=== PATIENT | female | born 1965 | race American Indian/Alaskan Native ===

== ENCOUNTER 2017-12-29 05:01 | Observation (INO) | payer MEDICARE ==
--- NOTE | 2017-12-29 05:26 | ED PDOC ---
Arrival/HPI - General Chief Complaint: Headache Time Seen by Provider: 12/29/17 05:07 - History of Present Illness Narrative History of Present Illness (Text): 12/29/17 05:26 52 year old female, whose past medical history includes TIA (left-sided numbness 10/2017 lasted about 5 days and now fully resolved), spinal surgery, and hyperlipidemia, presents to the emergency department complaining of a right- sided frontal headache associated with blurry vision to the right eye that began 4 hours ago at midnight. Patient states she was asleep when the headache woke her up. She went to bed 2 hours prior to that. Patient denies any trauma, fever, chills, photophobia, chest pain, palpitations, shortness of breath, nausea, vomiting, facial droop, neurological symptoms, or any other complaints. Past Medical History - Provider Review Nursing Documentation Reviewed: Yes - Cardiac Hx Cardiac Disorders: No - Neurological Hx Neurological Disorder: Yes Hx Seizures: Yes Hx Transient Ischemic Attacks (TIA): Yes (10/2017) - Musculoskeletal/Rheumatological Hx Musculoskeletal Disorders: Yes - Psychiatric Hx Substance Use: No Family/Social History - Physician Review Nursing Documentation Reviewed: Yes Family/Social History: No Known Family HX Smoking Status: Never Smoked Hx Alcohol Use: No Hx Substance Use: No Allergies/Home Meds Allergies/Adverse Reactions: Allergies banana Adverse Reaction (Verified 12/29/17 05:06) ANAPHYLAXIS Home Medications: Home Meds Medication Instructions Recorded Confirmed Baclofen [Lioresal] 1 tab PO TID 12/29/17 12/29/17 Citalopram Hydrobromide 1 tab PO DAILY 12/29/17 12/29/17 [Citalopram HBr] Etodolac [Lodine] 1 tab PO TID 12/29/17 12/29/17 Gabapentin [Neurontin] 1 tab PO TID 12/29/17 12/29/17 Loratadine [Claritin] 1 tab PO DAILY 12/29/17 12/29/17 Simvastatin [Zocor] 1 tab PO DAILY 12/29/17 12/29/17 Review of Systems - Physician Review All systems were reviewed & negative as marked: Yes - Review of Systems Constitutional: absent: Fevers Cardiovascular: absent: Chest Pain Physical Exam - Physical Exam Narrative Physical Exam (Text): Constitutional: Appears uncomfortable Head: Normocephalic. Atraumatic. No tender or enlarged temporal artery. Eyes: PERRL. EOMI. No mid-dilated pupil ENT: Moist mucous membranes. Neck: Supple. Cardiovascular: Regular rate. Chest: No tenderness. Respiratory: Clear to auscultation bilaterally. GI: Soft. Nontender. Nondistended. Back: No CVA tenderness. Musculoskeletal: No tenderness or swelling of extremities. Skin: No rash. Neurologic: Alert, no focal deficit. Oriented x 3. Follows commands. Motor 5/5 x 4. Sensation to light touch intact. No facial droop. Visual gimenez full. FTN normal. Normal speech. Vital Signs Reviewed: Yes Vital Signs Temp Pulse Resp BP Pulse Ox 12/29/17 05:51 67 14 125/88 98 12/29/17 05:08 98.2 F 79 24 138/103 H 98 Medical Decision Making ED Course and Treatment: Differential for headache and sudden unilateral painful vision change includes glaucoma (unlikely based on physical exam), giant cell arteritis (will send ESR/ CRP), migraine. This is unlikely CVA given NIHSS is 0 and regardless, patient is outside tPA window. Plan: -- CT Head w/o contrast -- Labs -- HCG, Qualitative urine -- Reassess and disposition Progress Notes: 12/29/17 06:04 FINDINGS: Brain: Unremarkable. No hemorrhage. No significant white matter disease. No edema. Ventricles: Unremarkable. No ventriculomegaly. Bones/joints: Unremarkable. No acute fracture. Soft tissues: Unremarkable. Sinuses: There is mild sinus disease. Mastoid air cells: Unremarkable as visualized. No mastoid effusion. IMPRESSION: No acute findings. 12/29/17 06:53 Signed out to ED day team. - Lab Interpretations Lab Results: 12/29/17 05:35 12/29/17 05:35 Lab Results 12/29/17 05:50: Urine HCG, Qual Negative 12/29/17 05:35: Sodium 145, Potassium 4.2, Chloride 107, Carbon Dioxide 27, Anion Gap 15, BUN 19, Creatinine 0.7, Est GFR ( Amer) > 60, Est GFR (Non- Af Amer) > 60, Random Glucose 123 H, Calcium 9.0, Total Bilirubin 0.9, AST 33, ALT 32, Alkaline Phosphatase 69, Total Protein 7.2, Albumin 4.2, Globulin 3.0, Albumin/Globulin Ratio 1.4 12/29/17 05:35: WBC 5.8, RBC 4.62, Hgb 12.7, Hct 38.7, MCV 83.8, MCH 27.5, MCHC 32.8, RDW 13.3, Plt Count 290, MPV 10.3, Gran % 47.4 L, Lymph % (Auto) 40.8 H, [place] % (Auto) 4.6, Eos % (Auto) 6.7 H, Baso % (Auto) 0.5, Gran # 2.75, Lymph # ( Auto) 2.4, [place] # (Auto) 0.3, Eos # (Auto) 0.4, Baso # (Auto) 0.03, ESR Pending I have reviewed the lab results: Yes - RAD Interpretation Radiology Orders: 12/29/17 05:27 HEAD W/O CONTRAST [CT] Stat - Medication Orders Current Medication Orders: Discontinued Medications Acetaminophen (Tylenol 325mg Tab) 975 mg PO STAT STA Stop: 12/29/17 06:19 Last Admin: 12/29/17 06:34 Dose: 975 mg Diphenhydramine HCl (Benadryl) 25 mg IVP STAT STA Stop: 12/29/17 06:19 Last Admin: 12/29/17 06:35 Dose: 25 mg IVP Administration Document 12/29/17 06:35 CNR (Rec: 12/29/17 06:35 CNR [id number]) Charges for Administration # of IVP Administrations 1 Ketorolac Tromethamine (Toradol) 30 mg IVP STAT STA Stop: 12/29/17 06:18 Last Admin: 12/29/17 06:35 Dose: 30 mg MAR Pain Assessment Document 12/29/17 06:35 CNR (Rec: 12/29/17 06:35 CNR [id number]) Pain Reassessment Is this a pain reassessment? No IVP Administration Document 12/29/17 06:35 CNR (Rec: 12/29/17 06:35 CNR [id number]) Charges for Administration # of IVP Administrations 1 - Scribe Statement The provider has reviewed the documentation as recorded by the Brayden Velasco Provider Scribe Attestation: All medical record entries made by the Carlitosibnikolai were at my direction and personally dictated by me. I have reviewed the chart and agree that the record accurately reflects my personal performance of the history, physical exam, medical decision making, and the department course for this patient. I have also personally directed, reviewed, and agree with the discharge instructions and disposition. Disposition/Present on Arrival - Present on Arrival Any Indicators Present on Arrival: No History of DVT/PE: No History of Uncontrolled Diabetes: No Urinary Catheter: No History of Decub. Ulcer: No History Surgical Site Infection Following: None - Disposition Have Diagnosis and Disposition been Completed?: No Diagnosis: Headache Disposition Time: 06:53 Condition: STABLE Forms: [employer] (Ethiopian)
--- NOTE | 2017-12-29 06:03 | CT ---
EXAM: CT Head Without Intravenous Contrast CLINICAL HISTORY: 52 years old, female; Pain; Headache; Additional info: Headache, r eye blurry vision TECHNIQUE: Axial computed tomography images of the head/brain without intravenous contrast. All CT scans at this facility use at least one of these dose optimization techniques: automated exposure control; mA and/or kV adjustment per patient size (includes targeted exams where dose is matched to clinical indication); or iterative reconstruction. Coronal and sagittal reformatted images were created and reviewed. COMPARISON: No relevant prior studies available. FINDINGS: Brain: Unremarkable. No hemorrhage. No significant white matter disease. No edema. Ventricles: Unremarkable. No ventriculomegaly. Bones/joints: Unremarkable. No acute fracture. Soft tissues: Unremarkable. Sinuses: There is mild sinus disease. Mastoid air cells: Unremarkable as visualized. No mastoid effusion. IMPRESSION: No acute findings.
[2017-12-29 06:04] LABS: ALB/GLOB RATIO 1.4 (1.1-1.8); ALBUMIN 4.2 g/dL (3.0-4.8); ALT/SGPT 32 U/L (7-56); AST/SGOT 33 U/L (14-36); BASO # 0.03 K/mm3 (0.0-2.0); BASO % 0.5 % (0.0-3.0); BLOOD UREA NITROGEN 19 mg/dL (7-21); EOS # 0.4 (0.0-0.7); EOS % 6.7 % (1.5-5.0); GFR AFRICAN-AMERICAN > 60; GFR NON-AFRICAN AMERICAN > 60; GRAN # 2.75 (1.4-6.5); GRAN % 47.4 % (50.0-68.0); HEMOGLOBIN 12.7 g/dL (12.0-16.0); LYMPH # 2.4 (1.2-3.4); LYMPH % 40.8 % (22.0-35.0); MEAN CELL VOLUME 83.8 fl (80.0-105.0); MEAN CORPUSCULAR HEMOGLOBIN 27.5 pg (25.0-35.0); MEAN CORPUSCULAR HGB CONC 32.8 g/dl (31.0-37.0); MEAN PLATELET VOLUME 10.3 fl (7.0-11.0); MONO # 0.3 (0.1-0.6); MONO % 4.6 % (1.0-6.0); RBC 4.62 10^6/uL (3.5-6.1); RED CELL DISTRIBUTION WIDTH 13.3 % (11.5-14.5); WHITE BLOOD COUNT 5.8 10^3/ul (4.5-11.0)
[2017-12-29] MEDS ORDERED: DiphenhydrAMINE 50 mg/ml Inj IVP STA (06:18)
[2017-12-29] MEDS ORDERED: Morphine 4 mg/ml ISec IVP STA (06:52)
--- NOTE | 2017-12-29 07:06 | ED PDOC ---
Physical Exam Vital Signs Reviewed: Yes Vital Signs Temp Pulse Resp BP Pulse Ox 12/29/17 07:36 69 16 120/82 96 12/29/17 05:51 67 14 125/88 98 12/29/17 05:08 98.2 F 79 24 138/103 H 98 Temperature: Afebrile Blood Pressure: Hypertensive Pulse: Regular Respiratory Rate: Normal Appearance: Positive for: Well-Appearing, Non-Toxic, Comfortable Pain Distress: None Mental Status: Positive for: Alert and Oriented X 3 - Systems Exam Head: Present: Atraumatic, Normocephalic Pupils: Present: PERRL Extroacular Muscles: Present: EOMI Conjunctiva: Present: Normal Mouth: Present: Moist Mucous Membranes Neck: Present: Normal Range of Motion Respiratory/Chest: Present: Clear to Auscultation, Good Air Exchange. No: Respiratory Distress, Accessory Muscle Use Cardiovascular: Present: Regular Rate and Rhythm, Normal S1, S2. No: Murmurs Abdomen: No: Tenderness, Distention, Peritoneal Signs Back: Present: Normal Inspection Upper Extremity: Present: Normal Inspection. No: Cyanosis, Edema Lower Extremity: Present: Normal Inspection. No: Edema Neurological: Present: GCS=15, CN II-XII Intact, Speech Normal, Motor Func Grossly Intact, Normal Sensory Function, Other (tenderness to right temporal area of head) Skin: Present: Warm, Dry, Normal Color. No: Rashes Psychiatric: Present: Alert, Oriented x 3, Normal Insight, Normal Concentration Medical Decision Making ED Course and Treatment: 12/29/17 07:03 Case signed out to me by Dr. Leyva, pending labs and reevaluation. 12/29/17 07:[address] Leong, Neurology, who agrees to place on observation for headache r/o giant cell arteritis. She will evaluate patient. Case discussed with Dr. Rizzo who will place the patient on observation for medicine. - Lab Interpretations Lab Results: 12/29/17 05:35 12/29/17 05:35 Lab Results 12/29/17 05:50: Urine HCG, Qual Negative 12/29/17 05:35: Sodium 145, Potassium 4.2, Chloride 107, Carbon Dioxide 27, Anion Gap 15, BUN 19, Creatinine 0.7, Est GFR ( Amer) > 60, Est GFR (Non- Af Amer) > 60, Random Glucose 123 H, Calcium 9.0, Total Bilirubin 0.9, AST 33, ALT 32, Alkaline Phosphatase 69, Total Protein 7.2, Albumin 4.2, Globulin 3.0, Albumin/Globulin Ratio 1.4 12/29/17 05:35: WBC 5.8, RBC 4.62, Hgb 12.7, Hct 38.7, MCV 83.8, MCH 27.5, MCHC 32.8, RDW 13.3, Plt Count 290, MPV 10.3, Gran % 47.4 L, Lymph % (Auto) 40.8 H, [place] % (Auto) 4.6, Eos % (Auto) 6.7 H, Baso % (Auto) 0.5, Gran # 2.75, Lymph # ( Auto) 2.4, [place] # (Auto) 0.3, Eos # (Auto) 0.4, Baso # (Auto) 0.03, ESR 5 - RAD Interpretation Radiology Orders: 12/29/17 05:27 HEAD W/O CONTRAST [CT] Stat - Medication Orders Current Medication Orders: Discontinued Medications Acetaminophen (Tylenol 325mg Tab) 975 mg PO STAT STA Stop: 12/29/17 06:19 Last Admin: 12/29/17 06:34 Dose: 975 mg Diphenhydramine HCl (Benadryl) 25 mg IVP STAT STA Stop: 12/29/17 06:19 Last Admin: 12/29/17 06:35 Dose: 25 mg IVP Administration Document 12/29/17 06:35 CNR (Rec: 12/29/17 06:35 CNR [id number]) Charges for Administration # of IVP Administrations 1 Ketorolac Tromethamine (Toradol) 30 mg IVP STAT STA Stop: 12/29/17 06:18 Last Admin: 12/29/17 06:35 Dose: 30 mg MAR Pain Assessment Document 12/29/17 06:35 CNR (Rec: 12/29/17 06:35 CNR [id number]) Pain Reassessment Is this a pain reassessment? No IVP Administration Document 12/29/17 06:35 CNR (Rec: 12/29/17 06:35 CNR [id number]) Charges for Administration # of IVP Administrations 1 Morphine Sulfate (Morphine) 4 mg IVP STAT STA Stop: 12/29/17 06:53 Last Admin: 12/29/17 07:01 Dose: 4 mg MAR Pain Assessment Document 12/29/17 07:01 CNR (Rec: 12/29/17 07:03 CNR [id number]) Pain Reassessment Is this a pain reassessment? No IVP Administration Document 12/29/17 07:01 CNR (Rec: 12/29/17 07:03 CNR [id number]) Charges for Administration # of IVP Administrations 1 - Scribe Statement The provider has reviewed the documentation as recorded by the Scribnikolai Garibay All medical record entries made by the Carlitosibnikolai were at my direction and personally dictated by me. I have reviewed the chart and agree that the record accurately reflects my personal performance of the history, physical exam, medical decision making, and the department course for this patient. I have also personally directed, reviewed, and agree with the discharge instructions and disposition. Disposition/Present on Arrival - Present on Arrival Any Indicators Present on Arrival: No History of DVT/PE: No History of Uncontrolled Diabetes: No Urinary Catheter: No History of Decub. Ulcer: No History Surgical Site Infection Following: None - Disposition Have Diagnosis and Disposition been Completed?: Yes Diagnosis: Headache Disposition: HOSPITALIZED Disposition Time: 09:05 Patient Plan: Observation Patient Problems: Current Active Problems Problem Status Onset Headache Acute Condition: STABLE
[2017-12-29] MEDS ORDERED: Morphine 2 mg/ml ISec IVP STA (09:30)
[2017-12-29] MEDS ORDERED: Morphine 2 mg/ml ISec IVP PRN ×2 (09:50→17:00)
[2017-12-29 10:00] LABS: HDL CHOLESTEROL 43 mg/dL (29-60)
[2017-12-29 10:10] LABS: LDL CHOLESTEROL 88 mg/dL (0-129)
[2017-12-29] MEDS ORDERED: methylPREDNISolone 1 GM in Sodium Chloride 0.9% 250 ML IV ONE (10:45)
[2017-12-29 10:49] VITALS: BMI 25.8
[2017-12-29] MEDS: ETODOLAC PO SCH ×3 (10:54→18:52)
--- NOTE | 2017-12-29 12:17 | CP.PCM.HP ---
<Yobani Kang - Last Filed: 12/29/17 12:37> History of Present Illness - History of Present Illness History of Present Illness: 52 y o female PMhx HLD, CVA in October 2017 with L sided numbness lasting about 5 days resolved, headaches, hx spinal surgery x 3 in 2014 for saddle anesthesia, seizures (last seizure in 2014 controlled on keppra), presents to the ED with R sided frontal headache with blurry vision and tearing of R eye that began at midnight today. Pt states that the headache has been continuous, unrelieving with medication, and woke her from sleep. Pt denies hx of this kind of headache happening before. Pt describes blurry vision on R side as feeling like a curtain is dropping down on her eye. Also c/o photophobia and phonophobia. C/o tenderness to palpation lateral to R eye and tenderness on her R forehead above R eye. Rated pain as greater than 10/10 on presentation to ED, pain is currently 8/10, controlled with current pain regimen. Admits to jaw pain but denies jaw claudication. No inciting events prior to incident. No recent hx of sick contacts. No hx of autoimmune disease or vasculitis. Denies any deficits to sensation or motion. Denies fever, chills, chest pain, neck stiffness, shortness of breath, n/v/d/c, abd pain, loss of bowel/bladder control, or other symptoms. PMhx: HLD, CVA in October 2017, saddle anesthesia, seizures, hay fever PSurgHx: C/s x1, myomectomy, spinal surgery x 3 to lower back for saddle anesthesia Allergies: NKDA Meds: Keppra bid, Statin, Citalopram, ASA 81 mg daily Social hx: denies smoking, alcohol or drug use PMD: Dr. Lamas Present on Admission - Present on Admission Any Indicators Present on Admission: No Review of Systems - Review of Systems All systems: reviewed and no additional remarkable complaints except - Constitutional Constitutional: As Per HPI, Headache - EENT Eyes: As Per HPI Ears: As Per HPI - Cardiovascular Cardiovascular: As Per HPI - Respiratory Respiratory: As Per HPI - Gastrointestinal Gastrointestinal: As Per HPI - Neurological Neurological: As Per HPI Past Patient History - Past Medical History & Family History Past Medical History?: Yes Pertinent Family History: Mom - hx HTN; Dad - hx stroke; both in their 80s - Past Social History Smoking Status: Never Smoked - CARDIAC Hx Cardiac Disorders: Yes Hx Hypercholesterolemia: Yes Other/Comment: HYPERLIPIDEMIA - PULMONARY Hx Respiratory Disorders: No - NEUROLOGICAL Hx Neurological Disorder: Yes HX Cerebrovascular Accident: Yes Hx Seizures: Yes Hx Transient Ischemic Attacks (TIA): No - HEENT Hx HEENT Problems: No - RENAL Hx Chronic Kidney Disease: No - ENDOCRINE/METABOLIC Hx Endocrine Disorders: No - HEMATOLOGICAL/ONCOLOGICAL Hx Blood Disorders: No - INTEGUMENTARY Hx Dermatological Problems: No - MUSCULOSKELETAL/RHEUMATOLOGICAL Other/Comment: SPINAL SURGERY - GASTROINTESTINAL Hx Gastrointestinal Disorders: No - GENITOURINARY/GYNECOLOGICAL Hx Genitourinary Disorders: No - PSYCHIATRIC Hx Psychophysiologic Disorder: No - SURGICAL HISTORY Hx Surgeries: Yes (BACK) Meds Allergies/Adverse Reactions: Allergies Allergy/AdvReac Type Severity Reaction Status Date / Time banana AdvReac ANAPHYLAXIS Verified 12/29/17 05:06 Physical Exam - Constitutional Appears: Well, Non-toxic, No Acute Distress - Head Exam Head Exam: ATRAUMATIC, NORMAL INSPECTION, NORMOCEPHALIC - Eye Exam Eye Exam: EOMI, Normal appearance, PERRL Pupil Exam: NORMAL ACCOMODATION, PERRL Additional comments: Pain in L eye when looking to the R - ENT Exam ENT Exam: Mucous Membranes Moist, Normal Oropharynx - Neck Exam Neck exam: Positive for: Normal Inspection - Respiratory Exam Respiratory Exam: Clear to Auscultation Bilateral, NORMAL BREATHING PATTERN - Cardiovascular Exam Cardiovascular Exam: REGULAR RHYTHM, +S1, +S2 - GI/Abdominal Exam GI & Abdominal Exam: Normal Bowel Sounds, Soft - Extremities Exam Extremities exam: Positive for: full ROM, normal capillary refill, normal inspection, pedal pulses present - Back Exam Back exam: FULL ROM, NORMAL INSPECTION Additional comments: tenderness to palpation in lower back b/l - Neurological Exam Neurological exam: Alert, CN II-XII Intact, Normal Gait, Oriented x3, Reflexes Normal Additional comments: Negative Romberg sign, strength and sensation intact in all extremities - Psychiatric Exam Psychiatric exam: Normal Affect, Normal Mood - Skin Skin Exam: Dry, Intact, Normal Color, Warm Results - Vital Signs Recent Vital Signs: Last Vital Signs Temp 98.9 F 12/29/17 10:24 Pulse 68 12/29/17 10:24 Resp 17 12/29/17 10:24 BP 118/79 12/29/17 10:24 Pulse Ox 96 12/29/17 09:51 - Labs Result Diagrams: 12/29/17 05:35 12/29/17 05:35 Assessment & Plan - Assessment and Plan (Free Text) Assessment: 52 y o female past medical history includes CVA (left-sided numbness 10/2017 lasted about 5 days and now fully resolved), spinal surgery, seizures, and hyperlipidemia, presents to the emergency department complaining of a right- sided frontal headache associated with blurry vision to the right eye. R/o migraine, CVA, temporal arteritis, cluster/tension headache, as etiologies for symptoms. Plan: Headache -CT head negative for acute changes -ESR normal, CRP pending -Neuro consulted (Dr. Leong), recs appreciated -S/p 1 dose of steroids, 1 dose sumatriptan, started on nasal cannula -Toradol PRN for moderate pain, morphine for severe pain Hx CVA C/w aspirin, lipitor Lipid panel, TSH, A1c pending Hx seizures Keppra dose unknown F/u neuro recs Hx HLD C/w lipitor Hx spinal surgery, spondyloarthrosis C/w home NSAID GI/DVT ppx: Protonix, SCDs Pt seen, examined with, and plan d/w Dr. Eng, attending Yobani Kang DO PGY-1, [employer] Pager #[phone] <Ernestina Eng - Last Filed: 12/30/17 17:06> Results - Vital Signs Recent Vital Signs: Last Vital Signs Temp 97.4 F L 12/30/17 07:49 Pulse 81 12/30/17 07:49 Resp 20 12/30/17 07:49 BP 125/82 12/30/17 07:49 Pulse Ox 95 12/30/17 07:49 - Labs Result Diagrams: 12/30/17 06:30 12/30/17 06:30 Labs: Laboratory Results - last 24 hr 12/30/17 12/30/17 12/30/17 06:30 06:30 06:30 WBC 18.0 H D RBC 4.77 Hgb 13.0 Hct 39.6 MCV 83.0 MCH 27.3 MCHC 32.8 RDW 13.2 Plt Count 315 MPV 10.6 Gran % 86.9 H Lymph % (Auto) 11.4 L [place] % (Auto) 1.6 Eos % (Auto) 0.0 L Baso % (Auto) 0.1 Gran # 15.67 H Lymph # (Auto) 2.1 [place] # (Auto) 0.3 Eos # (Auto) 0.0 Baso # (Auto) 0.01 Sodium 142 Potassium 4.1 Chloride 108 H Carbon Dioxide 25 Anion Gap 14 BUN 17 Creatinine 0.6 L Est GFR ( Amer) > 60 Est GFR (Non-Af Amer) > 60 Random Glucose 128 H Calcium 9.4 Phosphorus 3.2 Magnesium 2.0 Total Bilirubin 0.9 AST 25 ALT 30 Alkaline Phosphatase 63 Total Protein 7.2 Albumin 4.0 Globulin 3.2 Albumin/Globulin Ratio 1.2 Triglycerides 85 Cholesterol 218 H LDL Cholesterol Direct 119 HDL Cholesterol 55 Attending/Attestation - Attestation I have personally seen and examined this patient.: Yes I have fully participated in the care of the patient.: Yes I have reviewed all pertinent clinical information: Yes Notes (Text): 12/30/17 17:01 Medical record note made by the resident after discussion with my direction and input after the patient was personally seen and examined by me. I have reviewed the chart and agree that the record accurately reflects by personal performance of the history, physical exam, data review, and medical decision-making, in the course for the patient. I have also personally directed the plan of care. 52 yrs old female with PMH of CVA (left-sided numbness 10/2017 lasted about 5 days and now fully resolved), spinal surgery, seizures, and hyperlipidemia, presents to the emergency department complaining of a right-sided frontal headache associated with blurry vision, no visual lose, there is no focal deficit.There is no jaw claudication.ESR and CRP is normal.CT scan of head and MRI of brain is normal.Patient symptoms are likely due to Migrain.We will use Zofran/Toradol and PRN morphine. Neurology evaluation is appreciated. Management plan was discussed in detail with patient. Education was provided.
--- NOTE | 2017-12-29 13:37 | MRI ---
Date of service: 12/29/2017 PROCEDURE: MRI BRAIN WITHOUT CONTRAST HISTORY: r/o gca COMPARISON: None. TECHNIQUE: Multiplanar, multisequence MR images of the brain were obtained without intravenous contrast enhancement. FINDINGS: HEMORRHAGE: None DWI: No evidence of an acute or early subacute infarction. BRAIN PARENCHYMA: No mass effect or edema. No atrophy or chronic microvascular ischemic changes. VENTRICLES: Unremarkable. No hydrocephalus. CRANIUM: Unremarkable. ORBITS: Grossly unremarkable. PARANASAL SINUSES/MASTOIDS: Clear VASCULAR SYSTEM: Skull base flow voids intact. OTHER FINDINGS: None. IMPRESSION: Unremarkable non contrast enhanced MRI of the brain.
--- NOTE | 2017-12-29 14:48 | CP.PCM.CON ---
History of Present Illness - History of Present Illness History of Present Illness: Stanislaw Hay PGY2 Neurology Consult Note for Dr. Leong CC: Migraine symptoms, blurry vision, right sided numbness HPI: Patient is a 52 -year-old female with past medical history of seizures, TIA, headaches, and depression who presented to [facility] ED complaining of sudden onset headache that woke her from her sleep. She reports headache began at midnight and was unlike any other headache she has experienced. Patient reports right sided facial pain, right temporal discomfort to palpation, mild pain and blurry vision with chewing since onset of headache. Patient reports right face, arm, right numbness. She denies previous episodes of her presenting symptoms. Patient denies gait instability, trauma, syncope, complete loss of vision, chest pain, shortness of breath, abdominal pain, nausea , vomiting, fever, chills, sick contacts. 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 PSH: Back Surgery 2014, x1 SOCHX: Tobacco: Denies, ETOH: Denies, ID: Denies ALL: Banana MEDS: MAR reviewed Neurologist located in [place], unable to identify name Review of Systems - Review of Systems All systems: reviewed and no additional remarkable complaints except (as mentioned in HPI) Past Patient History - Past Medical History & Family History Past Medical History?: Yes - Past Social History Smoking Status: Never Smoked - CARDIAC Hx Cardiac Disorders: Yes Hx Hypercholesterolemia: Yes Other/Comment: HYPERLIPIDEMIA - PULMONARY Hx Respiratory Disorders: No - NEUROLOGICAL Hx Neurological Disorder: Yes HX Cerebrovascular Accident: Yes Hx Seizures: Yes Hx Transient Ischemic Attacks (TIA): No - HEENT Hx HEENT Problems: No - RENAL Hx Chronic Kidney Disease: No - ENDOCRINE/METABOLIC Hx Endocrine Disorders: No - HEMATOLOGICAL/ONCOLOGICAL Hx Blood Disorders: No - INTEGUMENTARY Hx Dermatological Problems: No - MUSCULOSKELETAL/RHEUMATOLOGICAL Other/Comment: SPINAL SURGERY - GASTROINTESTINAL Hx Gastrointestinal Disorders: No - GENITOURINARY/GYNECOLOGICAL Hx Genitourinary Disorders: No - PSYCHIATRIC Hx Psychophysiologic Disorder: No - SURGICAL HISTORY Hx Surgeries: Yes (BACK) Meds Allergies/Adverse Reactions: Allergies Allergy/AdvReac Type Severity Reaction Status Date / Time banana AdvReac ANAPHYLAXIS Verified 12/29/17 05:06 - Medications Medications: Current Medications Atorvastatin Calcium (Lipitor) 20 mg PO DIN [facility] Baclofen (Lioresal) 20 mg PO TID [facility] Last Admin: 12/29/17 10:03 Dose: 20 mg Citalopram Hydrobromide (Celexa) 20 mg PO DAILY [facility] Last Admin: 12/29/17 10:03 Dose: 20 mg Escitalopram Oxalate (Lexapro) 20 mg PO DAILY [facility] Gabapentin (Neurontin) 400 mg PO TID [facility] PRN Reason: Protocol Last Admin: 12/29/17 10:03 Dose: 400 mg Ketorolac Tromethamine (Toradol) 15 mg IVP Q6 PRN PRN Reason: Pain, moderate (4-7) Levetiracetam (Keppra) 500 mg PO BID [facility] Loratadine (Claritin) 10 mg PO DAILY [facility] Last Admin: 12/29/17 10:03 Dose: 10 mg Morphine Sulfate (Morphine) 1 mg IVP Q6H PRN PRN Reason: Pain, severe (8-10) Etodolac [Lodine] ((Home Med)) 1 tab PO TID [facility] Last Admin: 12/29/17 14:28 Dose: Not Given Physical Exam - Constitutional Appears: Non-toxic - Head Exam Head Exam: ATRAUMATIC, NORMAL INSPECTION, NORMOCEPHALIC Additional comments: tenderness over right temporal region - Eye Exam Eye Exam: EOMI, PERRL Additional comments: pain with right ocular movements - ENT Exam ENT Exam: Mucous Membranes Dry - Respiratory Exam Respiratory Exam: Clear to Auscultation Bilateral, NORMAL BREATHING PATTERN - Cardiovascular Exam Cardiovascular Exam: REGULAR RHYTHM, +S1, +S2 - GI/Abdominal Exam GI & Abdominal Exam: Normal Bowel Sounds, Soft - Extremities Exam Extremities exam: Negative for: pedal edema, tenderness - Neurological Exam Neurological exam: Alert, Normal Gait, Oriented x3, Reflexes Normal Additional comments: AAOx3 Mild Dysmetria on exam bilaterally Visual field intact in all four quadrants bilaterally Visual acuity intact bilaterally Strength 5/5 all four extremities bilaterally Negative Rhomberg Heel to ly appropriate - Psychiatric Exam Psychiatric exam: Normal Affect, Normal Mood - Skin Skin Exam: Dry, Intact Results - Vital Signs Recent Vital Signs: Last Vital Signs Temp 98.9 F 12/29/17 10:24 Pulse 68 12/29/17 10:24 Resp 17 12/29/17 10:24 BP 118/79 12/29/17 10:24 Pulse Ox 96 12/29/17 09:51 - Labs Result Diagrams: 12/29/17 05:35 12/29/17 05:35 Assessment & Plan - Assessment and Plan (Free Text) Assessment: 52 -year-old female with past medical history of seizures, TIA , headaches, and depression who is admitted for migraine with questionable GCA. Plan: Blurry Vision in setting of right temporal pain - Etiology: Migraine vs. GCA vs. TIA - Head CT: Negative for acute findings - Brain MRI w/o contrast: unremarkable - ESR, CRP wnl - 1 gram solumedrol daily - Patient started on Topamax - Monitor for symptoms overnight - Further recs per Dr. Leong Patient seen and case discussed with attending, Dr. Salo Hay PGY-2 - Date & Time Date: 12/29/17 Time: 10:00
[2017-12-29] MEDS ORDERED: Sodium Chloride 0.9% 1,000 ML IV SCH (16:45)
--- NOTE | 2017-12-29 16:48 | CP.PCM.PN ---
<Tom Arnold Freida - Last Filed: 12/29/17 16:44> Subjective - Date & Time of Evaluation Date of Evaluation: 12/29/17 Time of Evaluation: 16:44 - Subjective Subjective: Floor page - Tom Arnold DO PGY 2 Received a page that patient is complaining of more pain. Evaluated patient at bedside, she told me that during her surgery 3 years ago, she lost a lot of CSF. She is also complaining that this is the worst headache of her life. Physical exam revealed lacrimation bilaterally and tenderness to palpation as well. I am ordering a stat CT Head, changing toradol to q4PRN from q6 PRN, starting fluids @ 100 ml/hr, and gave another 50 of Imitrex (max dose of 200 per day, this dose will make it 100). Objective - Vital Signs/Intake and Output Vital Signs (last 24 hours): Temp Pulse Resp BP Pulse Ox 98.9 F 68 17 118/79 96 12/29/17 10:24 12/29/17 10:24 12/29/17 10:24 12/29/17 10:24 12/29/17 09:51 Intake and Output: 12/29/17 12/29/17 06:59 18:59 Intake Total 360 Balance 360 - Medications Medications: Current Medications Atorvastatin Calcium (Lipitor) 20 mg PO DIN [facility] Baclofen (Lioresal) 20 mg PO TID [facility] Last Admin: 12/29/17 14:36 Dose: 20 mg Citalopram Hydrobromide (Celexa) 20 mg PO DAILY [facility] Last Admin: 12/29/17 10:03 Dose: 20 mg Gabapentin (Neurontin) 400 mg PO TID [facility] PRN Reason: Protocol Last Admin: 12/29/17 14:36 Dose: 400 mg Ketorolac Tromethamine (Toradol) 15 mg IVP Q6 PRN PRN Reason: Pain, moderate (4-7) Last Admin: 12/29/17 15:40 Dose: 15 mg Levetiracetam (Keppra) 500 mg PO BID [facility] Last Admin: 12/29/17 14:51 Dose: 500 mg Loratadine (Claritin) 10 mg PO DAILY [facility] Last Admin: 12/29/17 10:03 Dose: 10 mg Etodolac [Lodine] ((Home Med)) 1 tab PO TID [facility] Last Admin: 12/29/17 14:28 Dose: Not Given <Ernestina Eng - Last Filed: 12/30/17 17:07> Objective - Vital Signs/Intake and Output Vital Signs (last 24 hours): Temp Pulse Resp BP Pulse Ox 97.4 F L 81 20 125/82 95 12/30/17 07:49 12/30/17 07:49 12/30/17 07:49 12/30/17 07:49 12/30/17 07:49 Intake and Output: 12/30/17 12/30/17 06:59 18:59 Intake Total 360 Balance 360 - Labs Labs: 12/30/17 06:30 12/30/17 06:30 Attending/Attestation - Attestation I have personally seen and examined this patient.: Yes I have fully participated in the care of the patient.: Yes I have reviewed all pertinent clinical information, including history, physical exam and plan: Yes
--- NOTE | 2017-12-29 17:39 | CT ---
Date of service: 12/29/2017 PROCEDURE: CT HEAD WITHOUT CONTRAST. HISTORY: r/o bleed COMPARISON: Comparison made with prior MRI and CT scan of the brain both performed earlier 12/29/2017. The the TECHNIQUE: Axial computed tomography images were obtained through the head/brain without intravenous contrast. Radiation dose: Total exam DLP = 861.03 mGy-cm. This CT exam was performed using one or more of the following dose reduction techniques: Automated exposure control, adjustment of the mA and/or kV according to patient size, and/or use of iterative reconstruction technique. FINDINGS: HEMORRHAGE: No intracranial hemorrhage. BRAIN: No mass effect or edema. No atrophy or chronic microvascular ischemic changes. VENTRICLES: Unremarkable. No hydrocephalus. CALVARIUM: Unremarkable. PARANASAL SINUSES: Mucoperiosteal inflammatory changes again noted within the maxillary sinuses left greater than right as well as multiple ethmoid air cells and to a lesser degree of sphenoid sinus. MASTOID AIR CELLS: Unremarkable as visualized. No inflammatory changes. OTHER FINDINGS: None. IMPRESSION: no acute intracranial hemorrhage.
[2017-12-29 18:40] VITALS: RESP 20
--- NOTE | 2017-12-29 19:53 | CARD ---
APPROVED REPORT Date of service: 12/29/2017 EKG Measurement Heart [id number] <Conclusion> Normal sinus rhythm Normal ECG
[2017-12-30 07:08] LABS: BASO # 0.01 K/mm3 (0.0-2.0); BASO % 0.1 % (0.0-3.0); GRAN # 15.67 (1.4-6.5); GRAN % 86.9 % (50.0-68.0); LYMPH # 2.1 (1.2-3.4); LYMPH % 11.4 % (22.0-35.0); MEAN CORPUSCULAR HEMOGLOBIN 27.3 pg (25.0-35.0); MEAN CORPUSCULAR HGB CONC 32.8 g/dl (31.0-37.0); MEAN PLATELET VOLUME 10.6 fl (7.0-11.0); MONO # 0.3 (0.1-0.6); MONO % 1.6 % (1.0-6.0); RBC 4.77 10^6/uL (3.5-6.1); RED CELL DISTRIBUTION WIDTH 13.2 % (11.5-14.5)
[2017-12-30 07:16] LABS: ALB/GLOB RATIO 1.2 (1.1-1.8); ALT/SGPT 30 U/L (7-56); AST/SGOT 25 U/L (14-36); BLOOD UREA NITROGEN 17 mg/dL (7-21); CALCIUM 9.4 mg/dL (8.4-10.5); GFR AFRICAN-AMERICAN > 60; GFR NON-AFRICAN AMERICAN > 60
[2017-12-30 07:50] VITALS: BP 125/82; PULSE 81; TEMP 97.4; O2SAT 95
[2017-12-30 07:57] LABS: HDL CHOLESTEROL 55 mg/dL (29-60)
[2017-12-30 08:08] LABS: LDL CHOLESTEROL 119 mg/dL (0-129)
[2017-12-30] MEDS: ETODOLAC PO SCH ×2 (10:12→13:59)
--- NOTE | 2017-12-30 13:03 | CP.PCM.PN ---
<PearlYobani - Last Filed: 12/30/17 12:52> Subjective - Date & Time of Evaluation Date of Evaluation: 01/06/18 Time of Evaluation: 12:20 - Subjective Subjective: Was called to evaluate pt after report from RN that pt stated she was " depressed and hopeless" during interview with patient animal care giver. Upon conversation with patient, she stated that she does not feel depressed and hopeless currently, states that she is on home psych medication prescribed to her by her PCP, and states that she has a counselor and talk therapy available to her as outpatient. Pt denied suicidal or homicidal ideation. Pt was educated about resources about suicide prevention, and instructed to return to the ED or call her PCP if she has concerns or wants to hurt herself. Plan discussed with care team. Plan d/w Dr. Eng, attending. Pt to be discharged to home. Yobani Kang DO PGY-1, Gas Producer Pager #[phone] Objective - Vital Signs/Intake and Output Vital Signs (last 24 hours): Temp Pulse Resp BP Pulse Ox 97.4 F L 81 20 125/82 95 12/30/17 07:49 12/30/17 07:49 12/30/17 07:49 12/30/17 07:49 12/30/17 07:49 Intake and Output: 12/30/17 12/30/17 06:59 18:59 Intake Total 360 Balance 360 - Medications Medications: Current Medications Aspirin (Ecotrin) 81 mg PO DAILY [facility] Last Admin: 12/30/17 09:32 Dose: 81 mg Atorvastatin Calcium (Lipitor) 20 mg PO DIN [facility] Last Admin: 12/29/17 18:52 Dose: 20 mg Baclofen (Lioresal) 20 mg PO TID [facility] Last Admin: 12/30/17 09:32 Dose: 20 mg Citalopram Hydrobromide (Celexa) 20 mg PO DAILY [facility] Last Admin: 12/30/17 09:32 Dose: 20 mg Gabapentin (Neurontin) 400 mg PO TID [facility] PRN Reason: Protocol Last Admin: 12/30/17 09:32 Dose: 400 mg Sodium Chloride (Sodium Chloride 0.9%) 1,000 mls @ 100 mls/hr IV .Q10H [facility] Last Admin: 12/30/17 06:08 Dose: 100 mls/hr Ketorolac Tromethamine (Toradol) 15 mg IVP Q6H PRN PRN Reason: Headache Levetiracetam (Keppra) 500 mg PO BID [facility] Last Admin: 12/30/17 09:32 Dose: 500 mg Loratadine (Claritin) 10 mg PO DAILY [facility] Last Admin: 12/30/17 09:32 Dose: 10 mg Morphine Sulfate (Morphine) 1 mg IVP Q6H PRN PRN Reason: Pain, severe (8-10) Last Admin: 12/30/17 09:32 Dose: 1 mg Etodolac [Lodine] ((Home Med)) 1 tab PO TID [facility] Last Admin: 12/30/17 10:12 Dose: Not Given Ondansetron HCl (Zofran Inj) 4 mg IVP Q4H PRN PRN Reason: Nausea/Vomiting - Labs Labs: 12/30/17 06:30 12/30/17 06:30 <Ernestina Eng - Last Filed: 12/30/17 17:15> Objective - Vital Signs/Intake and Output Vital Signs (last 24 hours): Temp Pulse Resp BP Pulse Ox 97.4 F L 81 20 125/82 95 12/30/17 07:49 12/30/17 07:49 12/30/17 07:49 12/30/17 07:49 12/30/17 07:49 Intake and Output: 12/30/17 12/30/17 06:59 18:59 Intake Total 360 Balance 360 - Labs Labs: 12/30/17 06:30 12/30/17 06:30 Attending/Attestation - Attestation I have personally seen and examined this patient.: Yes I have fully participated in the care of the patient.: Yes I have reviewed all pertinent clinical information, including history, physical exam and plan: Yes
--- NOTE | 2017-12-30 14:01 | CP.PCM.DIS ---
<Yobani Kang - Last Filed: 12/30/17 13:44> Provider - Provider Date of Admission: 12/29/17 07:48 Attending physician: Ernestina Eng MD Primary care physician: Rasta Gonzales MD Consults: Neurology - Dr. Leong Time Spent in preparation of Discharge (in minutes): 45 Diagnosis - Discharge Diagnosis (1) Migraine Status: Acute Onset Date: ~12/29/17 Hospital Course - Lab Results Lab Results: Most Recent Lab Values WBC 18.0 10^3/ul (4.5-11.0) H D 12/30/17 06:30 RBC 4.77 10^6/uL (3.5-6.1) 12/30/17 06:30 Hgb 13.0 g/dL (12.0-16.0) 12/30/17 06:30 Hct 39.6 % (36.0-48.0) 12/30/17 06:30 MCV 83.0 fl (80.0-105.0) 12/30/17 06:30 MCH 27.3 pg (25.0-35.0) 12/30/17 06:30 MCHC 32.8 g/dl (31.0-37.0) 12/30/17 06:30 RDW 13.2 % (11.5-14.5) 12/30/17 06:30 Plt Count 315 10^3/uL (120.0-450.0) 12/30/17 06:30 MPV 10.6 fl (7.0-11.0) 12/30/17 06:30 Gran % 86.9 % (50.0-68.0) H 12/30/17 06:30 Lymph % (Auto) 11.4 % (22.0-35.0) L 12/30/17 06:30 Grundy % (Auto) 1.6 % (1.0-6.0) 12/30/17 06:30 Eos % (Auto) 0.0 % (1.5-5.0) L 12/30/17 06:30 Baso % (Auto) 0.1 % (0.0-3.0) 12/30/17 06:30 Gran # 15.67 (1.4-6.5) H 12/30/17 06:30 Lymph # (Auto) 2.1 (1.2-3.4) 12/30/17 06:30 Grundy # (Auto) 0.3 (0.1-0.6) 12/30/17 06:30 Eos # (Auto) 0.0 (0.0-0.7) 12/30/17 06:30 Baso # (Auto) 0.01 K/mm3 (0.0-2.0) 12/30/17 06:30 ESR 5 mm/hr (0.0-20.0) 12/29/17 05:35 Sodium 142 mmol/L (132-148) 12/30/17 06:30 Potassium 4.1 mmol/L (3.6-5.0) 12/30/17 06:30 Chloride 108 mmol/L (98-107) H 12/30/17 06:30 Carbon Dioxide 25 mmol/L (21-33) 12/30/17 06:30 Anion Gap 14 (10-20) 12/30/17 06:30 BUN 17 mg/dL (7-21) 12/30/17 06:30 Creatinine 0.6 mg/dl (0.7-1.2) L 12/30/17 06:30 Est GFR ( Amer) > 60 12/30/17 06:30 Est GFR (Non-Af Amer) > 60 12/30/17 06:30 Random Glucose 128 mg/dL (70-110) H 12/30/17 06:30 Hemoglobin A1c 5.3 % (4.2-6.5) 12/29/17 05:30 Calcium 9.4 mg/dL (8.4-10.5) 12/30/17 06:30 Phosphorus 3.2 mg/dL (2.5-4.5) 12/30/17 06:30 Magnesium 2.0 mg/dL (1.7-2.2) 12/30/17 06:30 Total Bilirubin 0.9 mg/dL (0.2-1.3) 12/30/17 06:30 AST 25 U/L (14-36) 12/30/17 06:30 ALT 30 U/L (7-56) 12/30/17 06:30 Alkaline Phosphatase 63 U/L (38-126) 12/30/17 06:30 C-React Prot High Sens 0.25 mg/L (1.00-3.00) L 12/29/17 05:35 Total Protein 7.2 g/dL (5.8-8.3) 12/30/17 06:30 Albumin 4.0 g/dL (3.0-4.8) 12/30/17 06:30 Globulin 3.2 gm/dL 12/30/17 06:30 Albumin/Globulin Ratio 1.2 (1.1-1.8) 12/30/17 06:30 Triglycerides 85 mg/dL (35-160) 12/30/17 06:30 Cholesterol 218 mg/dL (130-200) H 12/30/17 06:30 LDL Cholesterol Direct 119 mg/dL (0-129) 12/30/17 06:30 HDL Cholesterol 55 mg/dL (29-60) 12/30/17 06:30 Urine HCG, Qual Negative (NEGATIVE) 12/29/17 05:50 - Hospital Course Hospital Course: Yobani Kang DO PGY-1, Drying Tumbler Operator Medicine Discharge Summary This is a 52 y o female PMhx HLD, CVA in October 2017 with L sided numbness lasting about 5 days resolved, headaches, hx spinal surgery x 3 in 2014 for saddle anesthesia, seizures (last seizure in 2014 controlled on keppra), presented to the ED on 12/29/17 with R sided frontal headache with blurry vision and tearing of R eye that began at midnight. Pt states that the headache had been continuous , unrelieving with medication, and woke her from sleep. Pt denies hx of this kind of headache happening before. Pt described blurry vision on R side as feeling like a curtain is dropping down on her eye. Also c/o photophobia and phonophobia. C/o tenderness to palpation lateral to R eye and tenderness on her R forehead above R eye. Rated pain as greater than 10/10 on presentation to ED, controlled with current pain regimen. Admitted to jaw pain but denies jaw claudication. No inciting events prior to incident. No recent hx of sick contacts. No hx of autoimmune disease or vasculitis. Denied any deficits to sensation or motion. Denied fever, chills, chest pain, neck stiffness, shortness of breath, n/v/d/c, abd pain, loss of bowel/bladder control, or other symptoms. Pt was given toradol, morphine, and sumatriptan for her symptoms. Neurology was consulted (Dr. Leong), who recommended MRI and steroid administration. In ED, CT was negative for acute changes, MRI did not demonstrate any acute pathology. Lab work-up, including ESR/CRP, was negative. Leukocytosis demonstrated on day of discharge was likely secondary to steroid administration. Pt was thus diagnosed with acute migraine. Pt's symptoms improved after treatment was administered. On day of discharge, pt was tolerating PO diet, ambulating, voiding well, and stated her symptoms were much improved. Pt was discharged to home in stable condition on 12/30/17, and was instructed to follow-up with her PCP within 1 week of discharge. Pt was discharged on 3 day course of percocet and sumatriptan. Pt was also instructed to resume home medications, and was sent refills of her prescriptions until she is able to follow-up with her PCP in clinic. Pt also stated at discharge that she was not depressed, had no suicidal/homicidal ideation, and states she has good follow-up outpatient with her PCP and her therapist. Pt was offered resources for depression and suicide prevention. All questions and concerns addressed with pt, and pt states she will follow-up as outpatient with her PCP. Discharge Exam - Head Exam Head Exam: ATRAUMATIC, NORMAL INSPECTION, NORMOCEPHALIC - Eye Exam Eye Exam: EOMI, Normal appearance, PERRL - ENT Exam ENT Exam: Mucous Membranes Moist, Normal Oropharynx - Neck Exam Neck exam: Full Rom, Normal Inspection - Respiratory Exam Respiratory Exam: Clear to PA & Lateral, NORMAL BREATHING PATTERN, UNREMARKABLE - Cardiovascular Exam Cardiovascular Exam: REGULAR RHYTHM, +S1, +S2 - GI/Abdominal Exam GI & Abdominal Exam: Normal Bowel Sounds, Unremarkable - Extremities Exam Extremities exam: full ROM, normal capillary refill, normal inspection, pedal pulses present - Back Exam Back exam: FULL ROM, NORMAL INSPECTION - Neurological Exam Neurological exam: Alert, CN II-XII Intact, Normal Gait, Oriented x3, Reflexes Normal - Psychiatric Exam Psychiatric exam: Normal Affect, Normal Mood - Skin Skin Exam: Dry, Intact, Normal Color, Warm Discharge Plan - Discharge Medications Prescriptions: Aspirin [Ecotrin] 81 mg PO DAILY #14 tabec Citalopram Hydrobromide [Citalopram HBr] 1 tab PO DAILY #14 tablet Gabapentin [Neurontin] 1 tab PO TID #44 cap Loratadine [Claritin] 10 mg PO DAILY #14 tab oxyCODONE/Acetaminophen [Percocet 5/325 mg Tab] 1 ea PO Q8 PRN #10 tab PRN Reason: Pain, Severe (8-10) Simvastatin [Zocor] 1 tab PO DAILY #14 tablet SUMAtriptan [Imitrex Tab] 50 mg PO BID PRN #6 tab PRN Reason: Pain, Severe (8-10) - Follow Up Plan Condition: STABLE Disposition: HOME/ ROUTINE Instructions: Migraine Headaches in Adults Additional Instructions: Please take meds as prescribed Please follow up with neurologist in one week Please follow up with your primary care doctor If symptoms persist or return please come to nearest emergency room Referrals: Rasta Gonzales MD [Primary Care Provider] - Debi Leong MD [Staff Provider] - <Ernestina Eng - Last Filed: 12/30/17 17:12> Provider - Provider Date of Admission: 12/29/17 07:48 Attending physician: Ernestina Eng MD Primary care physician: Rasta Gonzales MD Hospital Course - Lab Results Lab Results: Most Recent Lab Values WBC 18.0 10^3/ul (4.5-11.0) H D 12/30/17 06:30 RBC 4.77 10^6/uL (3.5-6.1) 12/30/17 06:30 Hgb 13.0 g/dL (12.0-16.0) 12/30/17 06:30 Hct 39.6 % (36.0-48.0) 12/30/17 06:30 MCV 83.0 fl (80.0-105.0) 12/30/17 06:30 MCH 27.3 pg (25.0-35.0) 12/30/17 06:30 MCHC 32.8 g/dl (31.0-37.0) 12/30/17 06:30 RDW 13.2 % (11.5-14.5) 12/30/17 06:30 Plt Count 315 10^3/uL (120.0-450.0) 12/30/17 06:30 MPV 10.6 fl (7.0-11.0) 12/30/17 06:30 Gran % 86.9 % (50.0-68.0) H 12/30/17 06:30 Lymph % (Auto) 11.4 % (22.0-35.0) L 12/30/17 06:30 Grundy % (Auto) 1.6 % (1.0-6.0) 12/30/17 06:30 Eos % (Auto) 0.0 % (1.5-5.0) L 12/30/17 06:30 Baso % (Auto) 0.1 % (0.0-3.0) 12/30/17 06:30 Gran # 15.67 (1.4-6.5) H 12/30/17 06:30 Lymph # (Auto) 2.1 (1.2-3.4) 12/30/17 06:30 Grundy # (Auto) 0.3 (0.1-0.6) 12/30/17 06:30 Eos # (Auto) 0.0 (0.0-0.7) 12/30/17 06:30 Baso # (Auto) 0.01 K/mm3 (0.0-2.0) 12/30/17 06:30 ESR 5 mm/hr (0.0-20.0) 12/29/17 05:35 Sodium 142 mmol/L (132-148) 12/30/17 06:30 Potassium 4.1 mmol/L (3.6-5.0) 12/30/17 06:30 Chloride 108 mmol/L (98-107) H 12/30/17 06:30 Carbon Dioxide 25 mmol/L (21-33) 12/30/17 06:30 Anion Gap 14 (10-20) 12/30/17 06:30 BUN 17 mg/dL (7-21) 12/30/17 06:30 Creatinine 0.6 mg/dl (0.7-1.2) L 12/30/17 06:30 Est GFR ( Amer) > 60 12/30/17 06:30 Est GFR (Non-Af Amer) > 60 12/30/17 06:30 Random Glucose 128 mg/dL (70-110) H 12/30/17 06:30 Hemoglobin A1c 5.3 % (4.2-6.5) 12/29/17 05:30 Calcium 9.4 mg/dL (8.4-10.5) 12/30/17 06:30 Phosphorus 3.2 mg/dL (2.5-4.5) 12/30/17 06:30 Magnesium 2.0 mg/dL (1.7-2.2) 12/30/17 06:30 Total Bilirubin 0.9 mg/dL (0.2-1.3) 12/30/17 06:30 AST 25 U/L (14-36) 12/30/17 06:30 ALT 30 U/L (7-56) 12/30/17 06:30 Alkaline Phosphatase 63 U/L (38-126) 12/30/17 06:30 C-React Prot High Sens 0.25 mg/L (1.00-3.00) L 12/29/17 05:35 Total Protein 7.2 g/dL (5.8-8.3) 12/30/17 06:30 Albumin 4.0 g/dL (3.0-4.8) 12/30/17 06:30 Globulin 3.2 gm/dL 12/30/17 06:30 Albumin/Globulin Ratio 1.2 (1.1-1.8) 12/30/17 06:30 Triglycerides 85 mg/dL (35-160) 12/30/17 06:30 Cholesterol 218 mg/dL (130-200) H 12/30/17 06:30 LDL Cholesterol Direct 119 mg/dL (0-129) 12/30/17 06:30 HDL Cholesterol 55 mg/dL (29-60) 12/30/17 06:30 Urine HCG, Qual Negative (NEGATIVE) 12/29/17 05:50 Attending/Attestation - Attestation I have personally seen and examined this patient.: Yes I have fully participated in the care of the patient.: Yes I have reviewed all pertinent clinical information, including history, physical exam and plan: Yes Notes (Text): 12/30/17 17:08 Medical record note made by the resident after discussion with my direction and input after the patient was personally seen and examined by me. I have reviewed the chart and agree that the record accurately reflects by personal performance of the history, physical exam, data review, and medical decision-making, in the course for the patient. I have also personally directed the plan of care. 52 yrs old female with PMH of CVA (left-sided numbness 10/2017 lasted about 5 days and now fully resolved), spinal surgery, seizures, and hyperlipidemia, was admitted with a right-sided frontal headache associated with blurry vision , no visual lose, there is no focal deficit.There is no jaw claudication.ESR and CRP are normal.CT scan of head and MRI of brain is normal.Patient symptoms are likely due to Migrain.Symptoms has improved with Zofran/Toradol / SUMAtriptan and PRN morphine. She will be discharged home and will follow up with PCP and Neurology.. Management plan was discussed in detail with patient. Education was provided. 12/30/17 17:12
== END 2017-12-30 14:33 | disposition home or self-care (01) ==
LOC: ED 05:01 → ERH 07:48 → 3RNO 09:25
PROVIDERS: ADMIT Internal Medicine; ATTEND Internal Medicine
DX: G43.909 Migraine, unspecified, not intractable, without status migrainosus (principal); E78.00 Pure hypercholesterolemia, unspecified; E78.5 Hyperlipidemia, unspecified; F32.9 Major depressive disorder, single episode, unspecified; R56.9 Unspecified convulsions; D72.829 Elevated white blood cell count, unspecified; T38.0X5A Adverse effect of glucocorticoids and synthetic analogues, initial encounter; Z86.73 Personal history of transient ischemic attack (TIA), and cerebral infarction without residual deficits; Z82.49 Family history of ischemic heart disease and other diseases of the circulatory system
CPT/HCPCS: 36415; 70450; 70551; 80053; 80061; 83036; 83735; 84100; 84703; 85025; 85651; 86140; 93005; 96374; 99285; G0378; J1200; J1885; J2270; J2930; J7030